=== PATIENT | male | born 1945 | race Hispanic/Latino ===

== ENCOUNTER 2016-05-13 10:59 | Emergency (ER) | payer OTHER, MEDICARE ==
[~2016-05-13] VITALS: Ht 170.2 cm; Wt 90.7 kg
[~2016-05-13 10:59] MED LIST: ASPIR 8181 MG PO; METFORMIN HCL500 MG PO; PRAVASTATIN20 MG PO
--- NOTE | 2016-05-13 11:23 | ED UPPER/LOWER EXTREMITY COMPL ---
History of Present Illness General Chief Complaint: Fall Stated Complaint: FALL LFT SHOULDER PAIN Source: patient, family Exam Limitations: no limitations Vital Signs & Intake/Output Vital Signs & Intake/Output Vital Signs Date Time Temp Pulse Resp B/P Pulse O2 O2 Flow FiO2 Ox Delivery Rate 05/13 1101 96.9 76 18 130/75 98 Room Air Allergies Coded Allergies: NO KNOWN ALLERGIES (11/06/14) Reconcile Medications Aspirin (Ecotrin*) 81 MG TABLET.DR 1 TAB PO DAILY HEART HEALTH (Reported) Metformin HCl (Metformin HCl ER) 500 MG TAB.ER.24H 1 TAB PO BID DIABETES ( Reported) Pravastatin Sodium 40 MG TABLET 1 TAB PO QPM CHOLESTEROL (Reported) Triage Note: PT STTES THAT HE SLIPPED ON ICE LAST PM AND FELL HURTING HIS L SHOULDER. SLING PLACED AT TRIAGE. PT TOOK NAPROXEN FOR PAIN Triage Nurses Notes Reviewed? yes HPI: Patient presents for evaluation of injury sustained status post fall. Patient states he slipped on the ice yesterday while at home. He had an abrupt onset of left shoulder pain that has been constant and severe sharp and worse with movement. He denies any other injury or loss of consciousness. Past History Travel History Traveled to [place] past 21 day No Medical History Any Pertinent Medical History? 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 He denies hypertension. History of MRSA: No History of VRE: No History of CDIFF: No Pneumonia Vaccine: 11/27/13 Influenza Vaccine: 11/27/13 Surgical History Surgical History: N Psychosocial History What is your primary language Indonesian Tobacco Use: Never used ETOH Use: denies use Illicit Drug Use: denies illicit drug use Family History Family History, If Any: Relation not specified for: *No pertinent family history Hx Contributory? No Review of Systems Review of Systems Constitutional: Reports: no symptoms. EENTM: Reports: no symptoms. Respiratory: Reports: no symptoms. Cardiovascular: Reports: no symptoms. Gastrointestinal/Abdominal: Reports: no symptoms. Genitourinary: Reports: no symptoms. Musculoskeletal: Reports: see HPI. Skin: Reports: no symptoms. Neurological/Psychological: Reports: no symptoms. Hematologic/Endocrine: Reports: no symptoms. Immunological: Reports: no symptoms. All Other Systems: Reviewed and Negative Physical Exam Physical Exam General Appearance: SEE BELOW Comments: Gen.: Well-nourished, well-developed, no acute respiratory distress. Head: Normocephalic, atraumatic. Eyes: Normal inspection bilaterally Ears: Normal inspection bilaterally Nose: Normal inspection, nasal cannula in place Throat/mouth : Moist mucosa Neck: Supple, full range of motion, no goiter Heart: Regular rate and rhythm Lungs: Quiet respirations Back: Normal range of motion Extremities: Left upper extremity: Tenderness of the left shoulder with mild soft tissue swelling. She is nontender over the clavicle and scapula forearm wrist and hand. The left upper extremity is neurovascularly intact distally. Neurologic: Cranial nerves grossly intact, speech is clear Skin: warm and dry Psychiatric: Calm, cooperative, no apparent delusions or hallucinations Progress Differential Diagnosis: dislocation, fracture Plan of Care: Orders Procedure Date/time Status XRY-SHOULDER COMPLETE-LEFT 05/13 1105 Active Diagnostic Imaging: Viewed by Me: Radiology Read. Discussed w/RAD: Radiology Read. Radiology Impression: PATIENT: SYLVIA STEPHENS PRESENT AGE: 70 PATIENT ACCOUNT NO: [id number] : 45 LOCATION: [facility] ORDERING PHYSICIAN: MONTRELL PINTO DO SERVICE DATE: 05/13/16 EXAM TYPE: RAD - XRY-SHOULDER COMPLETE-LEFT EXAMINATION: XR SHOULDER, LEFT CLINICAL INFORMATION: Fall. Left shoulder pain. COMPARISON: None TECHNIQUE: 3 views of left shoulder were obtained. FINDINGS: The bones and soft tissues are normal. No fracture. There is mild decrease in the left AC joint space with minimal marginal osteophytes. The glenohumeral joint space is normal. No abnormal soft tissue calcifications. IMPRESSION: Mild arthritic changes left AC joint. No acute fracture or dislocation seen. DICTATED BY: ALDEN DURBIN MD DATE/TIME DICTATED:1140 FELTING MACHINE OPERATOR HELPER:JAMIN DATE/TIME TRANSCRIBED:05/13/161140 CONFIDENTIAL, DO NOT COPY WITHOUT APPROPRIATE AUTHORIZATION. <Electronically signed in Other Vendor System> SIGNED BY: ALDEN DURBIN MD 05/13/161145 Comments: Arm sling placed by me. Departure Departure Disposition: HOME OR SELF CARE Condition: Stable Clinical Impression Primary Impression: Sprain of left shoulder Qualifiers: Encounter type: initial encounter Shoulder sprain type: unspecified sprain Qualified Code: S43.402A - Unspecified sprain of left shoulder joint, initial encounter Referrals: MONIK FELIX APRN (PCP/Family) Additional Instructions: Arm sling as needed. Ibuprofen 600 mg every 6 hours as needed for pain. Apply a cool compress or ice pack to your left shoulder over the next 48 hours. Follow up with your primary care doctor if not improved by Monday. Return if any concerns or sudden worsening. Please note that there might be incidental findings in your evaluation that are unrelated to the current emergency department visit. Please notify your primary care doctor about this emergency department visit in order to obtain and review all of the testing performed so that these incidental findings can be monitored as needed. If you had an x-ray performed, please understand that some fractures may not be seen on the initial set of x-rays. If your symptoms persist you might need a repeat set of x-rays to check for such a fracture. If you had a laceration evaluated, please understand that foreign bodies such as glass or wood may not be visible to the naked eye or on plain x-rays. If the wound becomes red, swollen, increasingly more painful or if there is any drainage from the wound, please have it reevaluated by a physician for the possibility of a retained foreign body. Thank you for choosing the [facility] Emergency Department for your care. It was a pleasure to serve you today. Montrell Nicholson M.D. [facility] Departure Forms: Customer Survey General Discharge Information Prescriptions: Current Visit Scripts Diclofenac Potassium 1 TAB PO TID PRN PAIN #30 TAB Cyclobenzaprine HCl 1 TAB PO TID PRN MUSCLE SPASMS #21 TAB
[2016-05-13] MEDS ORDERED: ASPIRIN EC81 M1 PO (11:27)
[2016-05-13] MEDS ORDERED: METFORMIN HCL500 M4 PO (11:28)
[2016-05-13] MEDS ORDERED: PRAVASTATIN SOD40 M2 PO (11:28)
--- NOTE | 2016-05-13 11:46 | RADIOLOGY REPORT ---
EXAMINATION: XR SHOULDER, LEFT CLINICAL INFORMATION: Fall. Left shoulder pain. COMPARISON: None TECHNIQUE: 3 views of left shoulder were obtained. FINDINGS: The bones and soft tissues are normal. No fracture. There is mild decrease in the left AC joint space with minimal marginal osteophytes. The glenohumeral joint space is normal. No abnormal soft tissue calcifications. IMPRESSION: Mild arthritic changes left AC joint. No acute fracture or dislocation seen.
[2016-05-13] MEDS ORDERED: CYCLOBENZAPRINE10 M1 PO ×2 (11:59→12:24)
[2016-05-13] MEDS ORDERED: DICLOFENAC POTA50 M1 PO ×2 (11:59→12:24)
[2016-05-13 12:00] VITALS: BP 109/77
== END 2016-05-13 12:06 ==
LOC: ERH 10:59
DX: S43.402A Unspecified sprain of left shoulder joint, initial encounter (principal); W00.0XXA Fall on same level due to ice and snow, initial encounter; Y93.9 Activity, unspecified; Y92.009 Unspecified place in unspecified non-institutional (private) residence as the place of occurrence of the external cause
CPT/HCPCS: 73030-LT

== ENCOUNTER 2016-06-16 12:43 | Emergency (ER) | payer OTHER, MEDICARE ==
[~2016-06-16] VITALS: Ht 170.2 cm; Wt 90.7 kg
[~2016-06-16 12:43] MED LIST changes: +ASPIRIN EC81 M1 PO; +CYCLOBENZAPRINE10 M1 PO; +DICLOFENAC POTA50 M1 PO; +METFORMIN HCL500 M4 PO; +PRAVASTATIN SOD40 M2 PO
[2016-06-16 12:47] VITALS: BP 128/83
--- NOTE | 2016-06-16 13:18 | ED GENERAL ADULT ---
History of Present Illness General Chief Complaint: Foot or Ankle Injury Stated Complaint: LEFT TOE PAIN Source: patient, family Exam Limitations: no limitations Vital Signs & Intake/Output Vital Signs & Intake/Output Vital Signs Date Time Temp Pulse Resp B/P B/P Pulse O2 O2 Flow FiO2 Mean Ox Delivery Rate 06/16 1247 96.7 92 14 128/83 100 Room Air Allergies Coded Allergies: NO KNOWN ALLERGIES (11/06/14) Reconcile Medications Aspirin (Ecotrin*) 81 MG TABLET.DR 1 TAB PO DAILY HEART HEALTH (Reported) Cyclobenzaprine HCl 10 MG TABLET 1 TAB PO TID PRN MUSCLE SPASMS Diclofenac Potassium 50 MG TABLET 1 TAB PO TID PRN PAIN Hydrocodone/Acetaminophen (Vicodin 5-300 MG Tablet) 5 MG-300 MG TABLET 1 TAB PO Q6 PRN pain Metformin HCl (Metformin HCl ER) 500 MG TAB.ER.24H 1 TAB PO BID DIABETES ( Reported) Pravastatin Sodium 40 MG TABLET 1 TAB PO QPM CHOLESTEROL (Reported) Triage Note: 70 Y/O MALE C/O FEW MONTHS BILATERAL TOE PAIN. STATES HE THOUGHT IT WAS NORMAL RELATED TO DIABETES. STATES 2 DAYS AGO HE NOTICED PART OF THE L MIDDLE TOE "IS BLACK". DENIES KNOWNN INJURY OR TRAUMA Triage Nurses Notes Reviewed? yes HPI: Patient is a 70-year-old male presents complaining of an area of black underneath his toenail on the left second toe. Patient noticed the area 2 days ago. No pain to the area currently. Patient has intermittent pain that radiates down his lower extremities into his feet that he attributes to his diabetes. Patient denies any specific injury to the area. Patient does not have a bilingual nanny. Denies fevers or redness to the area. Patient also reporting left shoulder pain for the past 5 weeks. Patient fell 5 weeks ago. Patient had x-rays in the emergency department that were unremarkable. Patient had an MRI last week and has no point with his orthopedist on Monday. Patient is unsure of the results of the MRI. Pain has been severe, worsening over the past couple of days. Denies numbness. (TERRENCE REVELES,BALBINA) Past History Travel History Traveled to [place] past 21 day No Medical History Any Pertinent Medical History? 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 He denies hypertension. History of MRSA: No History of VRE: No History of CDIFF: No Surgical History Surgical History: N Psychosocial History What is your primary language Irish Tobacco Use: Never used Family History Family History, If Any: Relation not specified for: *No pertinent family history Hx Contributory? No (BALBINA YORK) Review of Systems Review of Systems Constitutional: Denies: chills, fever. EENTM: Reports: no symptoms. Respiratory: Reports: no symptoms. Cardiovascular: Denies: chest pain. GI: Denies: abdominal pain. Musculoskeletal: Reports: see HPI. Skin: Reports: see HPI. Neurological/Psychological: Denies: numbness, paresthesia. Hematologic/Endocrine: Denies: bleeding. Immunologic/Allergic: Denies: splenectomy. (BALBINA YORK) Physical Exam Physical Exam General Appearance: well developed/nourished, alert, awake Head: atraumatic, normal appearance Eyes: Bilateral: normal appearance. Ears, Nose, Throat: hearing grossly normal Neck: normal inspection, supple, full range of motion Respiratory: no respiratory distress Cardiovascular: regular rate/rhythm Peripheral Pulses: 2+ dorsalis pedis (L) Back: normal inspection, normal range of motion Extremities: 0.5 cm area of black discoloration under the left 2nd toe nail. Nontender, no erythema, no swelling. Full range of motion of toes and foot. , left shoulder tenderness superior and anteriorly, positive drop arm test Neurologic/Psych: no motor/sensory deficits, awake, alert, oriented x 3, normal gait, normal mood/affect Skin: warm/dry Core Measures ACS in differential dx? No CVA/TIA Diagnosis: No Severe Sepsis Present: No Septic Shock Present: No (BALBINA YORK) Progress Differential Diagnoses I considered the following diagnoses in my evaluation of the patient: Subungual hematoma, gangrene, osteomyelitis Rotator cuff injury, fracture, sprain, strain Initial ED EKG: none (BALBINA YORK) Plan of Care: Orders Procedure Date/time Status FingerStick- Glucose 06/16 1316 Active Discussed with and seen by Dr. Nicholson. Results of x-rays discussed with patient. Patient's MRI from last week reviewed. Patient appears stable to follow up with podiatry for his toe in orthopedics regarding his left shoulder. (BALBINA YORK) Departure Departure Time of Disposition: 1410 Disposition: HOME OR SELF CARE Condition: Stable Clinical Impression Primary Impression: Discoloration of skin of toe Secondary Impressions: Rotator cuff tear, left Qualifiers: Rotator cuff tear extent: unspecified tear extent Qualified Code: M75.102 - Unspecified rotator cuff tear or rupture of left shoulder, not specified as traumatic Referrals: MONIK FELIX APRN (PCP/Family) SAMSON MOON DPM Additional Instructions: Follow up with Dr. Moon (bilingual nanny) within 1 week for further evaluation of her toe. Return to the emergency department if your develop swelling in your toe, redness and your toe, increasing pain, or worsening of symptoms. Follow-up with your orthopedic doctor on Monday for further evaluation of your left shoulder pain. Departure Forms: Customer Survey General Discharge Information Prescriptions: Current Visit Scripts Hydrocodone/Acetaminophen (Vicodin 5-300 MG Tablet) 1 TAB PO Q6 PRN pain #10 TAB (BALBINA YORK) PA/MOTORCYLES FINAL INSPECTOR Co-Sign Statement Statement: ED Attending supervision documentation- [X] I saw and evaluated the patient. I have also reviewed all the pertinent lab results and diagnostic results. I agree with the findings and the plan of care as documented in the PA's/MOTORCYLES FINAL INSPECTOR's documentation. [] I have reviewed the ED Record and agree with the PA's/MOTORCYLES FINAL INSPECTOR's documentation. [] Additions or exceptions (if any) to the PAs/MOTORCYLES FINAL INSPECTOR's note and plan are summarized below: [] (MAGDY JUAREZ,TIGIST [place]) Critical Care Note Critical Care Note Critical Care Time: non-applicable (BALBINA YORK)
--- NOTE | 2016-06-16 13:52 | RADIOLOGY REPORT ---
EXAMINATION: XR TOES, LEFT CLINICAL INFORMATION: Bruising under toenail. Evaluate for fracture or osteomyelitis. COMPARISON: None TECHNIQUE: 3 views of the left toes were obtained. FINDINGS: No fracture or dislocation. Alignment is anatomic. No erosion. The soft tissues are unremarkable. IMPRESSION: Unremarkable examination. No fracture or evidence for osteomyelitis.
[2016-06-16] MEDS ORDERED: VICODIN 5-3001 EACH PO (14:15)
== END 2016-06-16 14:28 ==
LOC: ERH 12:43
DX: R23.9 Unspecified skin changes (principal); E11.9 Type 2 diabetes mellitus without complications; Z79.84 Long term (current) use of oral hypoglycemic drugs
CPT/HCPCS: 73660-LT